=== PATIENT | female | born 1970 | race Caucasian/White ===

== ENCOUNTER 2018-12-25 21:36 | Emergency (ER) | payer OTHER ==
[~2018-12-25] VITALS: Ht 162.6 cm; Wt 81.6 kg
[2018-12-25 22:00] VITALS: BP 142/67
--- NOTE | 2018-12-25 22:43 | RAD ---
EXAM: Right hand, 3 views. HISTORY: Blunt trauma. COMPARISON: None. FINDINGS: 3 views of the right hand are obtained. There is no fracture, dislocation or subluxation. No radiodense foreign body is seen. IMPRESSION: No acute osseous finding. Electronically signed by: Earlene Arboleda MD (12/25/2018 10:40 PM) [facility]
--- NOTE | 2018-12-25 22:51 | PHYS DOC ---
Past Medical History Past Medical History: No Pertinent History Past Surgical History: Other Additional Past Surgical Histo: DNC, R KNEE, WISDOM TEETH Alcohol Use: Rarely Drug Use: None Adult General Chief Complaint Chief Complaint: HAND PROBLEM HPI HPI Patient is a 48 year old female who presents with right hand pain following an accident while working at [employer]. 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 These carts can carry up to 700 lbs and were apparently very loaded ton ight. Patient tried to open a box after the incidence and the hand was very painful at the right third MCP joint. She rates her pain at 5/10 currently and took 600 mg ibuprofen prior to coming to the ED. She denies numbness, tingling, or decreased range of motion at this time. Patient is not on blood thinners. Review of Systems Review of Systems Constitutional: Denies fever or chills [] Respiratory: Denies cough or shortness of breath [] Cardiovascular: Denies chest pain or palpitations. [] Musculoskeletal: Reports pain along right third MCP and along third metacarpal. [] Integument: Reports bruising. Denies rash, abrasion or bleeding. [] Neurologic: Denies motor weakness or changes in sensation. [] Complete review of systems found to be within normal limits, except as documented in this note. Physical Exam Physical Exam Constitutional: Well developed, obese, no acute distress but guarding her right UE [] HENT: Normocephalic and atraumatic[] Eyes: EOMI, conjunctiva normal, no discharge. [] Cardiovascular:Heart rate regular rhythm, no murmur [] Lungs & Thorax: Bilateral breath sounds clear to auscultation [] Abdomen: Soft and nontender [] Skin: Warm, dry, no erythema. Ecchymosis present over right MCP. No abrasion, laceration or bleeding. [] Extremities: Radial pulses +2/4 b/l, capillary refill < 2s b/l, range of motion intact at wrist b/l, reduced range of motion at right third MCP due to pain.[] Neurologic: Alert and oriented, sensation and motor function intact UE b/l. [] Psychologic: Affect normal, judgement normal, mood normal. [] Current Patient Data Vital Signs Vital Signs Date Time Temp Pulse Resp B/P (MAP) Pulse Ox O2 Delivery O2 Flow Rate FiO2 12/25/18 22:00 98.4 89 16 142/67 (92) 95 Room Air 98.4 EKG EKG [] Radiology/Procedures Radiology/Procedures PROCEDURE: HAND RIGHT 3V EXAM: Right hand, 3 views. HISTORY: Blunt trauma. COMPARISON: None. FINDINGS: 3 views of the right hand are obtained. There is no fracture, dislocation or subluxation. No radiodense foreign body is seen. IMPRESSION: No acute osseous finding. Electronically signed by: Earlene Arboleda MD (12/25/2018 10:40 PM) [facility] [] Course & Med Decision Making Course & Med Decision Making Imaging studies reviewed. (See chart for details) Patient is a 48 female who presents with right third MCP pain following getting her hand caught between two large carts at work this evening. X-ray shows no evidence of fracture or deformity. Patient has full motor and sensation intact with good cap refill. Will mindy wrap with instruction for cold compresses and OTC pain management. Patient stable for discharge with outpatient follow-up with PCP. Discussed findings and plan with patient, who acknowledge understanding and agreement. [] Dragon Disclaimer Dragon Disclaimer This electronic medical record was generated, in whole or in part, using a voice recognition dictation system. Departure Departure Impression: Primary Impression: Contusion of right hand including fingers Disposition: 01 HOME, SELF-CARE Condition: STABLE Referrals: NO PCP (PCP) Patient Instructions: Hand Contusion, [id number] AVIS GANDHI DO December 25, 2018 22:51
== END 2018-12-25 23:20 | disposition home or self-care (01) ==
LOC: ER 21:36
DX: S60.031A Contusion of right middle finger without damage to nail, initial encounter (principal); W23.0XXA Caught, crushed, jammed, or pinched between moving objects, initial encounter; Y93.89 Activity, other specified; Y92.512 Supermarket, store or market as the place of occurrence of the external cause; Y99.0 Civilian activity done for income or pay
CPT/HCPCS: 73130; 99284